=== PATIENT | male | born 1980 | race African-American/Black ===

== ENCOUNTER 2017-02-03 08:39 | Emergency (ER) | payer OTHER ==
[~2017-02-03 08:39] MED LIST: ALBUTEROL17 GM INH; BENADRYL IV; COMBIVENT INH14.7 GM; COMBIVENT INH14.7 GM INH; HYDROCODON-ACE1 EAC9 PO; PHENERGAN SUPP25 MG PR; PHENERGAN25 MG PO; PRIMA; SINGULAIR PO; SYMBICORT INH; VITAMIN D 22000 UNIT
[2017-02-03 08:40] LABS: INFLUENZA A NEG (NEG); INFLUENZA B POS (NEG)
== END 2017-02-03 09:09 | disposition home or self-care (01) ==
LOC: SED 08:39
PROVIDERS: Emergency Medicine
DX: J10.1 Influenza due to other identified influenza virus with other respiratory manifestations (principal); J45.909 Unspecified asthma, uncomplicated; F17.210 Nicotine dependence, cigarettes, uncomplicated; Z88.0 Allergy status to penicillin; Z79.899 Other long term (current) drug therapy
CPT/HCPCS: 87804; 94640; 99283